=== PATIENT | male | born 1985 | race Caucasian/White ===

== ENCOUNTER → 2019-05-27 17:22 | Outpatient (CLI) | payer BC, SELFPAY ==
--- NOTE | ~2019-05-27 | XR_ITS ---
EXAMINATION: XR abdomen/kub 1V INDICATION: Left lower abdominal pain TECHNIQUE: Supine views of the abdomen were obtained on 2 radiographs. COMPARISON: None FINDINGS: There are no dilated loops of bowel. Mild lower lumbar spondylosis is noted. A moderate vol ume of colonic stool is present. No abnormal calcifications are identified. IMPRESSION: 1. Constipation. Consider CT of the abdomen and pelvis if symptoms do not resolve. Reviewed, dictated and finalized at location A. ARE MANAGER IMPRESSION: 1. Constipation. Consider CT of the abdomen and pelvis if symptoms do not resol ve.
== END ==
PROVIDERS: PCP Emergency Medicine; Visit Provider Emergency Medicine
DX: K59.00 Constipation, unspecified (principal)
CPT/HCPCS: 74018

== ENCOUNTER 2019-09-02 11:04 | Outpatient (CLI) | payer BC, SELFPAY ==
--- NOTE | ~2019-09-02 | CT_ITS ---
EXAMINATION: CT brain wo con DATE: 09/02/2019 11:33 INDICATION: Right posterior headache. TECHNIQUE: Computed tomography (CT) of the head was performed without intravenous contrast. The mA wa s adjusted according to patient size. Iterative reconstruction technique was employed. The dose-lengt h product was 605.33 mGy-cm. COMPARISON: None FINDINGS: There is no intracranial hemorrhage, acute infarction, or abnormal intracranial mass lesion . The ventricles are normal in size. The paranasal sinuses are clear. The mastoid air cells are osbaldo l. The orbits are normal. IMPRESSION: 1. Normal brain. Reviewed, dictated and finalized at location E. IMPRESSION: 1. Normal brain.
== END 2019-09-02 11:05 | disposition home or self-care (01) ==
PROVIDERS: PCP Emergency Medicine; Visit Provider Emergency Medicine
DX: R51 Headache (principal)
CPT/HCPCS: 70450